=== PATIENT | female | born 1995 | race Caucasian/White ===

== ENCOUNTER 2022-09-06 21:16 | Emergency (ER) | payer OTHER ==
[2022-09-06] MEDS ORDERED: LIDOCAINE 1% INJ 10MG/ML (30 ML VIAL-PF) SQ ONE (22:17)
[2022-09-06] MEDS ORDERED: DIPH,PERTUS(ACELL)TETVAC-LF 0.5 ML VIAL IM ONE (22:17)
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
[2022-09-06 22:51] VITALS: BP 114/81; PULSE 88; RESP 18; TEMP 98.5
== END 2022-09-06 23:00 | disposition home or self-care (01) ==
LOC: EC 21:16
DX: S91.011A Laceration without foreign body, right ankle, initial encounter (principal); Z23 Encounter for immunization; Z86.59 Personal history of other mental and behavioral disorders; W25.XXXA Contact with sharp glass, initial encounter
CPT/HCPCS: 12001; 90471; 90715; 99282

== ENCOUNTER 2023-03-12 18:03 | Inpatient (IN) | payer OTHER ==
[2023-03-12] MEDS ORDERED: HYDROmorphone 0.5 MG/0.5 ML SYRINGE IVP STA (18:26)
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
[2023-03-12] MEDS ORDERED: SODIUM CHLORIDE 0.9% 1,000 ML IV ONE (20:39)
[2023-03-12 20:51] LABS: Basophils % (A) 0 %; Eosinophils # (A) 0.1 k/uL (0-0.7); Eosinophils % (A) 0 %; HCT 37.5 % (39.0-53.0); HGB 12.6 gm/dL (13.0-17.5); Lymphocytes # (A) 1.5 k/uL (1.0-4.8); Lymphocytes % (A) 7 %; MCHC 33.6 g/dL (31.0-37.0); MCV 83.5 fL (80.0-100.0); Mean Platelet Volume 8.6; Monocytes # (A) 0.7 k/uL (0-1.0); Monocytes % (A) 3 %; Neutrophils # (A) 19.5 k/uL (1.3-7.7); Neutrophils % (A) 89 %; Platelet Count 285 k/uL (150-450); RDW 13.4 % (11.5-15.5); WBC 21.9 k/uL (3.8-10.6)
[2023-03-12 21:01] LABS: African American GFR (CKD) >90 (>60 ml/min/1.73 sqM); Anion Gap 12 mmol/L; Blood Urea Nitrogen 12 mg/dL (9-20); Carbon Dioxide 23 mmol/L (22-30); Chloride 101 mmol/L (98-107); Glucose 156 mg/dL (74-99); Non-African American GFR(CKD) >90 (>60 ml/min/1.73 sqM); Potassium 3.7 mmol/L (3.5-5.1); Sodium 136 mmol/L (137-145)
[2023-03-12] MEDS ORDERED: ONDANSETRON 4 MG/2 ML VIAL IVP ONE (22:49)
[2023-03-12] MEDS ORDERED: DEXAMETHASONE SOD PHOSPHATE 4 MG/ML 1 ML VIAL IVP ONE (22:50)
[2023-03-12] MEDS ORDERED: PROPOFOL 10 MG/ML 20 ML VIAL IV ONE (23:14)
[2023-03-12] MEDS ORDERED: LIDOCAINE 1% INJ 10MG/ML (20 ML MDV) ONE (23:14)
[2023-03-12] MEDS ORDERED: fentaNYL (PF) 50 MCG/ML 2 ML AMP ONE (23:14)
[2023-03-12] MEDS ORDERED: HYDROmorphone (PF) 1 MG/ML ONE (23:14)
[2023-03-12] MEDS ORDERED: SUCCINYLCHOLINE CHLORIDE 200 MG/10 ML VIAL IV ONE (23:14)
[2023-03-12] MEDS ORDERED: SODIUM CHLORIDE 0.9% 100 ML BAG ONE (23:14)
[2023-03-12] MEDS ORDERED: MIDAZOLAM 2 MG/2 ML VIAL ONE (23:14)
[2023-03-12] MEDS ORDERED: ceFAZolin 1,000 MG VIAL ONE (23:14)
[2023-03-12] MEDS ORDERED: IV FLUID CONTINUATION 800 ML IV ONE (23:19)
[2023-03-13] MEDS ORDERED: BACITRACIN ZINC 500 UNIT/GM OINT 28.4 GM TUBE TOPICAL ONE (00:41)
[2023-03-13] MEDS ORDERED: HYDROmorphone 0.5 MG/0.5 ML SYRINGE IVP PRN (01:02)
[2023-03-13] MEDS ORDERED: MAGNESIUM HYDROXIDE 2,400 MG/30 ML CUP PO PRN (01:02)
[2023-03-13] MEDS ORDERED: ACETAMINOPHEN TAB 325 MG TAB PO PRN (01:02)
[2023-03-13] MEDS ORDERED: diazePAM 5 MG TAB PO PRN (01:02)
[2023-03-13] MEDS ORDERED: NALOXONE 0.4 MG/ML 1 ML VIAL IV PRN (01:02)
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
[2023-03-13] MEDS: HYDROmorphone 1 MG/ML 1 ML SYRINGE IVP PRN ×2 (05:40→09:42)
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
[2023-03-13] MEDS: SENNOSIDES-DOCUSATE SODIUM 1 EACH TAB PO SCH (20:22)
[2023-03-13] MEDS: HYDROcodone/APAP 5-325MG 1 EACH TAB PO PRN (21:30)
[2023-03-14] MEDS: HYDROcodone/APAP 5-325MG 1 EACH TAB PO PRN ×3 (08:30→22:23)
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
[2023-03-14 10:53] LABS: HCT 31.3 % (37.2-46.3); HGB 10.3 g/dL (12.0-15.0); MCH 27.5 pg (27.0-32.0); MCHC 32.9 g/dL (32.0-37.0); MCV 83.7 FL (80.0-97.0); Mean Platelet Volume 11.1 FL (9.5-12.2); NRBC Per 100 WBC 0 X 10*3/uL (0.00-0.01); Platelet Count 247 X 10*3/uL (140-440); RBC 3.74 X 10*6/uL (4.10-5.20); RDW 14.4 % (11.5-14.5); WBC 13.08 X 10*3/uL (4.50-10.00)
[2023-03-14 10:54] LABS: Basophils # (A) 0.03 X 10*3/uL (0.00-0.10); Basophils % (A) 0.2 %; Eosinophils # (A) 0 X 10*3/uL (0.04-0.35); Eosinophils % (A) 0 %; Lymphocytes # (A) 2.24 X 10*3/uL (0.90-5.00); Lymphocytes % (A) 17.1 %; Monocytes # (A) 1.07 X 10*3/uL (0.20-1.00); Monocytes % (A) 8.2 %; Neutrophils % (A) 74.2 %
[2023-03-14] MEDS: SODIUM CHLORIDE 0.9% 1,000 ML IV SCH (15:52)
--- NOTE | 2023-03-14 16:07 | XR ---
EXAMINATION TYPE: XR chest 2V DATE OF EXAM: 03/14/2023 3:44 PM CLINICAL INDICATION:Female, 27 years old with history of fever dyspnea; [facility] COMPARISON: None TECHNIQUE: XR chest 2V Frontal and lateral views of the chest. FINDINGS: Lungs/Pleura: There is no evidence of pleural effusion, focal consolidation, or pneumothorax. Pulmonary vascularity: Unremarkable. Heart/mediastinum: Cardiomediastinal silhouette is unremarkable. Musculoskeletal: No acute osseous pathology. IMPRESSION: Low lung volumes with a generalized hazy appearance which could represent atelectasis versus atypical pneumonia.
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
[2023-03-14] MEDS: SENNOSIDES-DOCUSATE SODIUM 1 EACH TAB PO SCH (22:23)
[2023-03-15] MEDS: SODIUM CHLORIDE 0.9% 1,000 ML IV SCH (06:28)
[2023-03-15] MEDS: HYDROcodone/APAP 5-325MG 1 EACH TAB PO PRN ×2 (08:29→14:11)
[2023-03-15 08:50] VITALS: BP 108/61; PULSE 116; RESP 19; TEMP 99.3
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
[2023-03-15] MEDS ORDERED: CEFDINIR 300 MG CAP PO SCH (10:15)
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
== END 2023-03-15 14:47 | disposition home or self-care (01) | DRG 317 ==
LOC: EDSEX → EC 18:03 → SUPCPDRO 18:03 → 4SSUR 20:40 → EDSEX 20:40 → 5NMEDONC 03-13 01:17
PROVIDERS: ADMIT Orthopaedic Surgery Orthopaedic Surgery of the Spine; ATTEND Orthopaedic Surgery Orthopaedic Surgery of the Spine
PROC: 0JQB0ZZ Repair Perineum Subcutaneous Tissue and Fascia, Open Approach (ICD-10-PCS; 2023-03-12)
PROC: 0JQL0ZZ Repair Right Upper Leg Subcutaneous Tissue and Fascia, Open Approach (ICD-10-PCS; 2023-03-12)
PROC: 0JBB0ZZ Excision of Perineum Subcutaneous Tissue and Fascia, Open Approach (ICD-10-PCS; principal; 2023-03-12 20:25)
DX: S76.121A Laceration of right quadriceps muscle, fascia and tendon, initial encounter (principal); S71.111A Laceration without foreign body, right thigh, initial encounter; S31.113A Laceration without foreign body of abdominal wall, right lower quadrant without penetration into peritoneal cavity, initial encounter; S86.821A Laceration of other muscle(s) and tendon(s) at lower leg level, right leg, initial encounter; V89.2XXA Person injured in unspecified motor-vehicle accident, traffic, initial encounter; R50.9 Fever, unspecified; R00.0 Tachycardia, unspecified; E66.01 Morbid (severe) obesity due to excess calories; F64.0 Transsexualism; F32.A Depression, unspecified; F41.9 Anxiety disorder, unspecified; Z68.42 Body mass index [BMI] 45.0-49.9, adult; Z11.52 Encounter for screening for COVID-19; K40.90 Unilateral inguinal hernia, without obstruction or gangrene, not specified as recurrent; M19.90 Unspecified osteoarthritis, unspecified site; V86.55XA Driver of 3- or 4- wheeled all-terrain vehicle (ATV) injured in nontraffic accident, initial encounter
CPT/HCPCS: 36415; 71046; 72170; 72193; 80048; 83036; 84703; 85025; 85730; 86850; 86900; 86901; 87040; 87636; 96361; 96365; 96375; 99285

== ENCOUNTER 2023-03-24 14:37 | Inpatient (IN) | payer OTHER ==
[2023-03-24] MEDS ORDERED: NALOXONE 0.4 MG/ML 1 ML VIAL IV PRN (16:42)
[2023-03-24 17:17] LABS: ALT 68 U/L (4-49); AST 62 U/L (17-59); African American GFR (CKD) >90 (>60 ml/min/1.73 sqM); Albumin 3.1 g/dL (3.5-5.0); Alkaline Phosphatase 95 U/L (38-126); Anion Gap 11 mmol/L; Blood Urea Nitrogen 6 mg/dL (9-20); Calcium 8.1 mg/dL (8.4-10.2); Carbon Dioxide 23 mmol/L (22-30); Chloride 97 mmol/L (98-107); Glucose 106 mg/dL (74-99); Non-African American GFR(CKD) >90 (>60 ml/min/1.73 sqM); Potassium 3.6 mmol/L (3.5-5.1); Sodium 131 mmol/L (137-145); Total Bilirubin 1.1 mg/dL (0.2-1.3); Total Protein 6.2 g/dL (6.3-8.2)
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
[2023-03-24] MEDS ORDERED: SODIUM CHLORIDE 0.9% 1,000 ML IV ONE (17:41)
[2023-03-24] MEDS: SODIUM CHLORIDE 0.9% 1,000 ML IV SCH (18:07)
[2023-03-24 18:27] LABS: HCT 28.4 % (39.0-53.0); Hypochromasia Slight; MCH 28.4 pg (25.0-35.0); MCHC 34.2 g/dL (31.0-37.0); Mean Platelet Volume 9.1; Platelet Count 421 k/uL (150-450); RBC 3.42 m/uL (4.30-5.90); RDW 13.7 % (11.5-15.5); WBC 12.7 k/uL (3.8-10.6)
[2023-03-24 18:28] LABS: HGB 9.7 gm/dL (13.0-17.5)
[2023-03-24] MEDS ORDERED: ceFAZolin 3 GM in SODIUM CHLORIDE 0.9% 100 ML IVPB ONE (18:30)
[2023-03-24 19:24] LABS: Appearance,Urine Cloudy (Clear); Bacteria,Urine Few /hpf; Bilirubin,Urine Negative (Negative); Blood,Urine Trace (Negative); Color,Urine Yellow; Glucose,Urine (UA) Negative (Negative); Ketones,Urine 1+ (Negative); Leukocyte Esterase,Urine Large (Negative); Mucus,Urine Many /hpf; Nitrite,Urine Negative (Negative); Protein,Urine 1+ (Negative); RBC,Urine 4 /hpf (0-5); Specific Gravity,Urine 1.023 (1.001-1.035); Squamous Epithelial Cell,Urine 7 /hpf (0-4); WBC,Urine 12 /hpf (0-5)
[2023-03-24] MEDS: SENNOSIDES-DOCUSATE SODIUM 1 EACH TAB PO SCH (22:34)
[2023-03-25] MEDS: SODIUM CHLORIDE 0.9% 1,000 ML IV SCH ×5 (03:11→18:25)
[2023-03-25] MEDS: HYDROcodone/APAP 5-325MG 1 EACH TAB PO PRN ×3 (05:01→23:55)
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
[2023-03-25] MEDS ORDERED: DEXAMETHASONE SOD PHOSPHATE 4 MG/ML 1 ML VIAL IV ONE (11:57)
[2023-03-25] MEDS ORDERED: ONDANSETRON 4 MG/2 ML VIAL IVP ONE (11:57)
[2023-03-25] MEDS ORDERED: IV FLUID CONTINUATION 1,000 ML IV ONE (15:15)
[2023-03-25] MEDS ORDERED: HYDROmorphone (PF) 1 MG/ML ONE (15:59)
[2023-03-25] MEDS ORDERED: SUCCINYLCHOLINE CHLORIDE 200 MG/10 ML VIAL IV ONE (15:59)
[2023-03-25] MEDS ORDERED: PROPOFOL 10 MG/ML 20 ML VIAL IV ONE (15:59)
[2023-03-25] MEDS ORDERED: LIDOCAINE 1% INJ 10MG/ML (20 ML MDV) ONE (15:59)
[2023-03-25] MEDS ORDERED: fentaNYL (PF) 50 MCG/ML 2 ML AMP ONE (15:59)
[2023-03-25] MEDS ORDERED: MIDAZOLAM 2 MG/2 ML VIAL ONE (15:59)
[2023-03-25] MEDS ORDERED: ceFAZolin 3,000 MG in SODIUM CHLORIDE 0.9% IRRIGATIO 3,000 ML IRRIGATION ONE (16:20)
[2023-03-25] MEDS ORDERED: traMADol 50 MG TAB PO PRN (17:14)
[2023-03-25] MEDS ORDERED: MAGNESIUM HYDROXIDE 2,400 MG/30 ML CUP PO PRN (17:14)
[2023-03-25] MEDS ORDERED: ACETAMINOPHEN TAB 325 MG TAB PO PRN (17:14)
[2023-03-25] MEDS ORDERED: HYDROmorphone 0.5 MG/0.5 ML SYRINGE IVP PRN (17:14)
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
[2023-03-25] MEDS: LACTATED RINGERS 1,000 ML IV SCH (17:59)
[2023-03-25] MEDS: MILI PO SCH (18:30)
[2023-03-25 19:38] LABS: Basophils % (A) 0 %; Eosinophils % (A) 0 %; HCT 23.8 % (39.0-53.0); Hypochromasia Moderate; Lymphocytes # (A) 0.6 k/uL (1.0-4.8); Lymphocytes % (A) 6 %; MCH 27.5 pg (25.0-35.0); MCHC 32.7 g/dL (31.0-37.0); Monocytes # (A) 0.2 k/uL (0-1.0); Monocytes % (A) 2 %; Neutrophils # (A) 9.6 k/uL (1.3-7.7); Neutrophils % (A) 91 %; Platelet Count 242 k/uL (150-450); RBC 2.84 m/uL (4.30-5.90); RDW 13.9 % (11.5-15.5); WBC 10.6 k/uL (3.8-10.6)
[2023-03-25] MEDS: SENNOSIDES-DOCUSATE SODIUM 1 EACH TAB PO SCH (19:45)
[2023-03-25 19:48] LABS: HGB 7.8 gm/dL (13.0-17.5)
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
[2023-03-26] MEDS ORDERED: ceFAZolin 3 GM in SODIUM CHLORIDE 0.9% 100 ML IVPB SCH ×2
[2023-03-26] MEDS: SODIUM CHLORIDE 0.9% 1,000 ML IV SCH ×3 (00:10→16:54)
[2023-03-26] MEDS ORDERED: HYDROmorphone 0.5 MG/0.5 ML SYRINGE IVP PRN (07:00)
[2023-03-26] MEDS: FAMOTIDINE 20 MG TAB PO SCH (09:26)
[2023-03-26] MEDS: SENNOSIDES-DOCUSATE SODIUM 1 EACH TAB PO SCH ×2 (09:27→20:21)
[2023-03-26] MEDS: MILI PO SCH (09:33)
[2023-03-26] MEDS: LACTATED RINGERS 1,000 ML IV SCH (11:07)
[2023-03-26] MEDS: HYDROcodone/APAP 5-325MG 1 EACH TAB PO PRN ×2 (11:43→20:20)
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
[2023-03-26 12:00] LABS: African American GFR (CKD) >90 (>60 ml/min/1.73 sqM); Anion Gap 9 mmol/L; Blood Urea Nitrogen 10 mg/dL (9-20); Calcium 8.1 mg/dL (8.4-10.2); Carbon Dioxide 20 mmol/L (22-30); Chloride 108 mmol/L (98-107); Glucose 142 mg/dL (74-99); Non-African American GFR(CKD) >90 (>60 ml/min/1.73 sqM); Potassium 4.6 mmol/L (3.5-5.1); Sodium 137 mmol/L (137-145)
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
[2023-03-27] MEDS: HYDROcodone/APAP 5-325MG 1 EACH TAB PO PRN ×3 (06:46→21:45)
[2023-03-27] MEDS: SENNOSIDES-DOCUSATE SODIUM 1 EACH TAB PO SCH ×2 (08:33→20:38)
[2023-03-27] MEDS: SODIUM CHLORIDE 0.9% 1,000 ML IV SCH (08:34)
[2023-03-27] MEDS: MILI PO SCH (08:34)
[2023-03-27] MEDS: FAMOTIDINE 20 MG TAB PO SCH (08:34)
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
[2023-03-27 11:43] LABS: BUN/Creat Ratio 15.33 Ratio (12.00-20.00); Blood Urea Nitrogen 9.2 mg/dL (9.0-27.0); Calcium 7.8 mg/dL (8.7-10.3); Carbon Dioxide 22.1 mmol/L (21.6-31.8); Chloride 105 mmol/L (96-109); Glucose 100 mg/dL (70-110); Potassium 4.6 mmol/L (3.5-5.5); Sodium 138 mmol/L (135-145)
[2023-03-27] MEDS: AMPICILLIN-SULBACTAM 3 GM in SODIUM CHLORIDE 0.9% 100 ML IVPB SCH ×3 (14:31→23:05)
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
[2023-03-27 17:34] LABS: Basophils % (A) 0 %; Eosinophils # (A) 0.1 k/uL (0-0.7); Eosinophils % (A) 1 %; HCT 26.8 % (39.0-53.0); HGB 8.8 gm/dL (13.0-17.5); Hypochromasia Moderate; Lymphocytes # (A) 1.3 k/uL (1.0-4.8); Lymphocytes % (A) 14 %; MCH 27.5 pg (25.0-35.0); MCHC 32.7 g/dL (31.0-37.0); MCV 84.2 fL (80.0-100.0); Mean Platelet Volume 8.3; Monocytes # (A) 0.4 k/uL (0-1.0); Monocytes % (A) 4 %; Neutrophils # (A) 7.9 k/uL (1.3-7.7); Neutrophils % (A) 81 %; Platelet Count 415 k/uL (150-450); RBC 3.18 m/uL (4.30-5.90); RDW 14.3 % (11.5-15.5); WBC 9.7 k/uL (3.8-10.6)
[2023-03-28] MEDS: AMPICILLIN-SULBACTAM 3 GM in SODIUM CHLORIDE 0.9% 100 ML IVPB SCH ×2 (05:51→12:47)
[2023-03-28 07:36] VITALS: BP 132/77; PULSE 109; RESP 16; TEMP 101.6
[2023-03-28] MEDS: MILI PO SCH (08:06)
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
[2023-03-28] MEDS: FAMOTIDINE 20 MG TAB PO SCH (08:23)
[2023-03-28] MEDS: SENNOSIDES-DOCUSATE SODIUM 1 EACH TAB PO SCH (08:23)
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
[2023-03-28] MEDS: HYDROcodone/APAP 5-325MG 1 EACH TAB PO PRN (12:46)
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
== END 2023-03-28 16:03 | disposition home or self-care (01) | DRG 721 ==
LOC: EDSEX → EC 14:37 → 1SOBS 16:42 → 4SSUR 03-26 16:15
PROVIDERS: ADMIT Orthopaedic Surgery Orthopaedic Surgery of the Spine; ATTEND Orthopaedic Surgery Orthopaedic Surgery of the Spine
PROC: 0JBL0ZZ Excision of Right Upper Leg Subcutaneous Tissue and Fascia, Open Approach (ICD-10-PCS; principal; 2023-03-25 07:30)
DX: T81.41XA Infection following a procedure, superficial incisional surgical site, initial encounter (principal); T81.32XA Disruption of internal operation (surgical) wound, not elsewhere classified, initial encounter; E66.01 Morbid (severe) obesity due to excess calories; Z68.43 Body mass index [BMI] 50.0-59.9, adult; L03.115 Cellulitis of right lower limb; F32.A Depression, unspecified; V86.95XA Unspecified occupant of 3- or 4- wheeled all-terrain vehicle (ATV) injured in nontraffic accident, initial encounter; F41.9 Anxiety disorder, unspecified; F84.0 Autistic disorder; S31.113D Laceration without foreign body of abdominal wall, right lower quadrant without penetration into peritoneal cavity, subsequent encounter; L76.34 Postprocedural seroma of skin and subcutaneous tissue following other procedure
CPT/HCPCS: 36415; 80048; 80053; 81001; 81025; 83605; 85025; 85027; 87040; 87070; 87075; 87077; 87086; 87186; 87205; 96361; 96365; 99285

== ENCOUNTER 2023-03-31 14:34 | Inpatient (IN) | payer OTHER ==
[2023-03-31] MEDS ORDERED: IBUPROFEN 600 MG TAB PO STA (15:08)
[2023-03-31] MEDS ORDERED: VANCOMYCIN IV PER PHARMACY 1 EACH MISC MISCELLANE PRN (15:08)
[2023-03-31] MEDS ORDERED: PIPERACILLIN-TAZOBACTAM 3.375 GM in SODIUM CHLORIDE 0.9% 100 ML IVPB STA (15:08)
[2023-03-31] MEDS ORDERED: ACETAMINOPHEN TAB 500 MG TAB PO STA (15:08)
--- NOTE | 2023-03-31 15:15 | ED ---
General Adult HPI - General Chief complaint: Recheck/Abnormal Lab/Rx Stated complaint: Abn Labs Time Seen by Provider: 03/31/23 15:00 Source: patient, RN notes reviewed, old records reviewed Mode of arrival: wheelchair Limitations: no limitations - History of Present Illness Initial comments: This is a 27-year-old biological female who comes into the emergency department with a wound on the upper left thigh that she has been previously taken to the OR for when it initially occurred and since then put on antibiotics because culture came back positive. Patient was seen in the wound clinic today by Dr. Toscano and he wanted the patient admitted for antibiotics and a debridement tomorrow. Patient states occasionally feels warm but has never taken her temperature. Patient states the wound does smell terrible and there is still some pain in that area. Patient states she is compliant with her antibiotics - Related Data Home Medications Medication Instructions Recorded Confirmed norgestimate-ethinyl estradioL 1 tab PO DAILY 03/12/23 03/24/23 [Isa 0.25-0.035 mg Tablet] HYDROcodone/APAP 5-325MG [[place] 5] 1 tab PO Q6HR PRN 03/24/23 03/24/23 Previous Rx's Medication Instructions Recorded Famotidine [Pepcid] 20 mg PO DAILY #15 tablet 03/15/23 Amoxic-Pot Clav 875-125Mg 1 tab PO Q12HR 14 Days #28 tab 03/28/23 [Augmentin 875-125] Allergies Allergy/AdvReac Type Severity Reaction Status Date / Time No Known Allergies Allergy Verified 03/31/23 14:56 Review of Systems ROS Statement: Those systems with pertinent positive or pertinent negative responses have been documented in the HPI. ROS Other: All systems not noted in ROS Statement are negative. Past Medical History Past Medical History: No Reported History Additional Past Medical History / Comment(s): Patient identifies as male. Uses the pronoun of he. Originally born and a assigned female with a name of Benita Phillip. Denies any medications other than oral contraceptives. History of Any Multi-Drug Resistant Organisms: None Reported Past Surgical History: Orthopedic Surgery Additional Past Surgical History / Comment(s): Right thigh I&D and laceration repair. Past Anesthesia/Blood Transfusion Reactions: No Reported Reaction Past Psychological History: Anxiety, Depression Smoking Status: Never smoker Past Alcohol Use History: Rare Past Drug Use History: None Reported General Exam - General Exam Comments Initial Comments: GENERAL: Patient is well-developed and well-nourished. Patient is nontoxic and well- hydrated and is in mild distress. ENT: Neck is soft and supple. No significant lymphadenopathy is noted. Oropharynx is clear. Moist mucous membranes. Neck has full range of motion without eliciting any pain. EYES: The sclera were anicteric and conjunctiva were pink and moist. Extraocular movements were intact and pupils were equal round and reactive to light. Eyelids were unremarkable. PULMONARY: Unlabored respirations. Good breath sounds bilaterally. No audible rales rhonchi or wheezing was noted. CARDIOVASCULAR: There is a regular rate and rhythm without any murmurs gallops or rubs. ABDOMEN: Soft and nontender with normal bowel sounds. SKIN: Skin is clear with no lesions or rashes and otherwise unremarkable. NEUROLOGIC: Patient is alert and oriented x3. Cranial nerves II through XII are grossly intact. Motor and sensory are also intact. Normal speech, volume and content. Symmetrical smile. MUSCULOSKELETAL: Patient's right groin wound has a lot of necrotic tissue around it and hasn't very malodorous smell. LYMPHATICS: No significant lymphadenopathy is noted PSYCHIATRIC: Normal psychiatric evaluation. Limitations: no limitations Course Vital Signs 03/31/23 14:56 Temperature 98.8 F Pulse Rate 112 Respiratory 18 Rate Blood Pressure 110/60 O2 Sat by Pulse 100 Oximetry Medical Decision Making - Medical Decision Making Was pt. sent in by a medical professional or institution (, PA, SHIP DESIGN TEACHER, urgent care, hospital, or jail...) When possible be specific @ -Dr. Toscano sent the patient in Did you speak to anyone other than the patient for history (EMS, parent, family, police, friend...)? What history was obtained from this source @ -[No] Did you review nursing and triage notes (agree or disagree)? Why? @ -[I reviewed and agree with nursing and triage notes] Were old charts reviewed (outside hosp., previous admission, EMS record, old EKG, old radiological studies, urgent care reports/EKG's, jail records)? Report findings @ -I reviewed prior charts prior lab work prior microbiology reports Differential Diagnosis (chest pain, altered mental status, abdominal pain women, abdominal pain men, vaginal bleeding, weakness, fever, dyspnea, syncope, headache, dizziness, GI bleed, back pain, seizure, CVA, palpatations, mental health, musculoskeletal)? @ -Cellulitis, gangrene, wound debridement, this is not all inclusive EKG interpreted by me (3pts min.). @ -[As above] X-rays interpreted by me (1pt min.). @ -[None done] CT interpreted by me (1pt min.). @ -[None done] U/S interpreted by me (1pt. min.). @ -[None done] What testing was considered but not performed or refused? (CT, X-rays, U/S, labs)? Why? @ -[None] What meds were considered but not given or refused? Why? @ -[None] Did you discuss the management of the patient with other professionals (professionals i.e. , PA, SHIP DESIGN TEACHER, lab, RT, psych nurse, social service manager, construction sales manager, teacher, protection officer, medical case manager)? Give summary @ -I spoke with Dr. Lucero he agreed to admit the patient. I also spoke with Dr. Toscano he agreed to consult. Was smoking cessation discussed for >3mins.? @ -[No] Was critical care preformed (if so, how long)? @ -[No] Were there social determinants of health that impacted care today? How? (Homelessness, low income, unemployed, alcoholism, drug addiction, transportation, low edu. Level, literacy, decrease access to med. care, [place] [facility], rehab)? @ -[No] Was there de-escalation of care discussed even if they declined (Discuss DNR or withdrawal of care, Hospice)? DNR status @ -[No] What co-morbidities impacted this encounter? (DM, HTN, Smoking, COPD, CAD, Cancer, CVA, ARF, Chemo, Hep., AIDS, mental health diagnosis, sleep apnea, morbid obesity)? @ -[None] Was patient admitted / discharged? Hospital course, mention meds given and route, prescriptions, significant lab abnormalities, going to OR and other pertinent info. @ -I wrote admitting orders I consulted Dr. Cao for infectious disease and consult with Dr. Toscano for debridement Undiagnosed new problem with uncertain prognosis? @ -[No] Drug Therapy requiring intensive monitoring for toxicity (Heparin, Nitro, Insulin, Cardizem)? @ -[No] Were any procedures done? @ -[No] Diagnosis/symptom? @ -Surgical wound infection Acute, or Chronic, or Acute on Chronic? @ -Acute Uncomplicated (without systemic symptoms) or Complicated (systemic symptoms)? @ -Complicated Side effects of treatment? @ -[No] Exacerbation, Progression, or Severe Exacerbation? @ -[No] Poses a threat to life or bodily function? How? (Chest pain, [place], VA, pneumonia, PE, COPD, DKA, ARF, appy, cholecystitis, CVA, Diverticulitis, Homicidal, Suicidal, threat to staff... and all critical care pts) @ -Yes this could lead to sepsis and end organ dysfunction Disposition Clinical Impression: Surgical wound infection Disposition: ADMITTED IP TO THIS HOSP Referrals: Hung Daigle DO [Primary Care Provider] - 1-2 days Time of Disposition: 15:15
[2023-03-31] MEDS ORDERED: SODIUM CHLORIDE 0.9% 1,000 ML IV ONE (15:16)
[2023-03-31] MEDS ORDERED: VANCOMYCIN 2,500 MG in SODIUM CHLORIDE 0.9% 500 ML 500 ML IVPB ONE (16:00)
[2023-03-31] MEDS: SODIUM CHLORIDE 0.9% 500 ML 500 ML IV SCH (17:18)
[2023-03-31 17:46] LABS: Basophils % (A) 0 %; Eosinophils # (A) 0.1 k/uL (0-0.7); Eosinophils % (A) 1 %; HCT 27.8 % (39.0-53.0); HGB 9.3 gm/dL (13.0-17.5); Hypochromasia Moderate; Lymphocytes # (A) 2.1 k/uL (1.0-4.8); Lymphocytes % (A) 17 %; MCH 27.3 pg (25.0-35.0); MCHC 33.4 g/dL (31.0-37.0); MCV 81.8 fL (80.0-100.0); Mean Platelet Volume 8.5; Monocytes # (A) 0.6 k/uL (0-1.0); Monocytes % (A) 5 %; Neutrophils # (A) 9.5 k/uL (1.3-7.7); Neutrophils % (A) 76 %; Platelet Count 471 k/uL (150-450); Poikilocytosis Slight; RDW 14.4 % (11.5-15.5); WBC 12.6 k/uL (3.8-10.6)
[2023-03-31 18:06] LABS: Prothrombin Time 10.6 sec (10.0-12.5)
[2023-03-31 18:09] LABS: ALT 68 U/L (4-49); AST 56 U/L (17-59); African American GFR (CKD) >90 (>60 ml/min/1.73 sqM); Albumin 2.8 g/dL (3.5-5.0); Alkaline Phosphatase 89 U/L (38-126); Anion Gap 6 mmol/L; Blood Urea Nitrogen 7 mg/dL (9-20); Carbon Dioxide 22 mmol/L (22-30); Chloride 104 mmol/L (98-107); Glucose 109 mg/dL (74-99); Non-African American GFR(CKD) >90 (>60 ml/min/1.73 sqM); Sodium 132 mmol/L (137-145); Total Bilirubin 0.8 mg/dL (0.2-1.3); Total Protein 5.6 g/dL (6.3-8.2)
[2023-03-31 18:40] LABS: Partial Thromboplastin Time 20.9 sec (22.0-30.0)
[2023-03-31] MEDS ORDERED: LACTULOSE 20 GM/30 ML CUP PO PRN (20:25)
[2023-03-31] MEDS ORDERED: ONDANSETRON 4 MG/2 ML VIAL IVP PRN (20:25)
[2023-03-31] MEDS ORDERED: ALPRAZolam 0.25 MG TAB PO PRN (20:25)
[2023-03-31] MEDS ORDERED: NALOXONE 0.4 MG/ML 1 ML VIAL IV PRN (20:25)
[2023-03-31] MEDS ORDERED: MELATONIN 3 MG TABLET PO PRN (20:25)
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
[2023-03-31] MEDS: ENOXAPARIN 40 MG/0.4 ML SYRINGE SQ SCH (20:58)
[2023-03-31] MEDS: AMPICILLIN-SULBACTAM 3 GM in SODIUM CHLORIDE 0.9% 100 ML IVPB SCH (23:00)
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
[2023-04-01] MEDS ORDERED: PIPERACILLIN-TAZOBACTAM 3.375 GM in SODIUM CHLORIDE 0.9% 100 ML IVPB SCH ×2
[2023-04-01] MEDS: HYDROcodone/APAP 5-325MG 1 EACH TAB PO PRN ×3 (00:05→21:32)
[2023-04-01] MEDS ORDERED: VANCOMYCIN 2,500 MG in SODIUM CHLORIDE 0.9% 500 ML 500 ML IVPB SCH (02:00)
[2023-04-01] MEDS: AMPICILLIN-SULBACTAM 3 GM in SODIUM CHLORIDE 0.9% 100 ML IVPB SCH ×4 (05:32→23:46)
[2023-04-01 07:08] LABS: African American GFR (CKD) >90 (>60 ml/min/1.73 sqM); Non-African American GFR(CKD) >90 (>60 ml/min/1.73 sqM)
[2023-04-01] MEDS: ENOXAPARIN 40 MG/0.4 ML SYRINGE SQ SCH (09:18)
[2023-04-01] MEDS: FAMOTIDINE 20 MG TAB PO SCH (09:21)
[2023-04-01] MEDS: norgestimate-ethinyl estradioL 1 EACH TABLET PO SCH (10:04)
[2023-04-01] MEDS ORDERED: IV FLUID CONTINUATION 900 ML IV ONE (13:45)
[2023-04-01] MEDS ORDERED: fentaNYL (PF) 50 MCG/ML 2 ML AMP ONE (14:10)
[2023-04-01] MEDS ORDERED: PROPOFOL 10 MG/ML 20 ML VIAL IV ONE (14:10)
[2023-04-01] MEDS ORDERED: MIDAZOLAM 2 MG/2 ML VIAL ONE (14:10)
[2023-04-01] MEDS ORDERED: LIDOCAINE 1% INJ 10MG/ML (20 ML MDV) SQ ONE ×2 (14:42)
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
[2023-04-02] MEDS: AMPICILLIN-SULBACTAM 3 GM in SODIUM CHLORIDE 0.9% 100 ML IVPB SCH ×4 (06:00→17:18)
[2023-04-02] MEDS: HYDROcodone/APAP 5-325MG 1 EACH TAB PO PRN ×3 (06:05→22:24)
[2023-04-02 06:54] LABS: Basophils % (A) 0 %; Eosinophils # (A) 0.1 k/uL (0-0.7); Eosinophils % (A) 1 %; HCT 25.1 % (34.0-46.0); HGB 7.9 gm/dL (11.4-16.0); Hypochromasia Marked; Lymphocytes # (A) 2.3 k/uL (1.0-4.8); Lymphocytes % (A) 20 %; MCH 26.4 pg (25.0-35.0); MCHC 31.7 g/dL (31.0-37.0); MCV 83.4 fL (80.0-100.0); Mean Platelet Volume 8.2; Monocytes # (A) 0.6 k/uL (0-1.0); Monocytes % (A) 5 %; Neutrophils # (A) 8.2 k/uL (1.3-7.7); Neutrophils % (A) 72 %; Platelet Count 417 k/uL (150-450); Poikilocytosis Slight; RBC 3.01 m/uL (3.80-5.40); RDW 14.8 % (11.5-15.5); WBC 11.3 k/uL (3.8-10.6)
[2023-04-02 07:12] LABS: ALT 55 U/L (4-34); AST 44 U/L (14-36); African American GFR (CKD) >90 (>60 ml/min/1.73 sqM); Albumin 2.4 g/dL (3.5-5.0); Albumin/Globulin Ratio 0.9; Alkaline Phosphatase 75 U/L (38-126); Anion Gap 6 mmol/L; Blood Urea Nitrogen 7 mg/dL (7-17); Calcium 7.5 mg/dL (8.4-10.2); Carbon Dioxide 20 mmol/L (22-30); Chloride 108 mmol/L (98-107); Globulin 2.7 g/dL; Glucose 99 mg/dL (74-99); Non-African American GFR(CKD) >90 (>60 ml/min/1.73 sqM); Potassium 3.6 mmol/L (3.5-5.1); Sodium 134 mmol/L (137-145); Total Bilirubin 0.6 mg/dL (0.2-1.3); Total Protein 5.1 g/dL (6.3-8.2)
[2023-04-02] MEDS: ENOXAPARIN 40 MG/0.4 ML SYRINGE SQ SCH (08:08)
[2023-04-02] MEDS: FAMOTIDINE 20 MG TAB PO SCH (08:08)
[2023-04-02] MEDS: norgestimate-ethinyl estradioL 1 EACH TABLET PO SCH (08:08)
--- NOTE | 2023-04-02 09:19 | PN ---
PROGRESS NOTE The patient is a 27-year-old female. The patient had a wound on her left groin area with flap necrosis. Yesterday, we did extensive debridement. There was fat necrosis and fasciitis on her anterior aspect of the thigh. We excised it and we placed a VAC treatment. The patient is on IV antibiotics. The VAC should be changed every 3 days a week, and we did take the deep culture again, and we waited for the report. We continued the local wound care. The wound VAC will be changed tomorrow. MMODL / IJN: [id number] /
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
[2023-04-03] MEDS: AMPICILLIN-SULBACTAM 3 GM in SODIUM CHLORIDE 0.9% 100 ML IVPB SCH ×4 (00:35→17:29)
[2023-04-03] MEDS: HYDROcodone/APAP 5-325MG 1 EACH TAB PO PRN ×3 (06:58→18:57)
[2023-04-03] MEDS: FAMOTIDINE 20 MG TAB PO SCH (09:03)
[2023-04-03] MEDS: ENOXAPARIN 40 MG/0.4 ML SYRINGE SQ SCH (09:04)
[2023-04-03] MEDS: norgestimate-ethinyl estradioL 1 EACH TABLET PO SCH (09:04)
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
--- NOTE | 2023-04-03 16:58 | P.PN ---
Progress Note - Text 27-year-old white female patient has a large wound in the right groin area patient had extensive debridement patient IV antibiotic culture is pending today we have changed wound VAC there is some granulation tissue noted still there is a lot of drainage the wound VAC continue with IV antibiotic
[2023-04-04] MEDS: AMPICILLIN-SULBACTAM 3 GM in SODIUM CHLORIDE 0.9% 100 ML IVPB SCH ×5 (00:38→23:40)
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
[2023-04-04] MEDS: HYDROcodone/APAP 5-325MG 1 EACH TAB PO PRN ×3 (03:18→18:05)
[2023-04-04 06:27] LABS: Basophils % (A) 0 %; Eosinophils # (A) 0.1 k/uL (0-0.7); Eosinophils % (A) 1 %; HCT 25.2 % (34.0-46.0); Hypochromasia Marked; Lymphocytes # (A) 2.2 k/uL (1.0-4.8); Lymphocytes % (A) 20 %; MCH 26.7 pg (25.0-35.0); MCHC 31.8 g/dL (31.0-37.0); Mean Platelet Volume 8.2; Monocytes # (A) 0.4 k/uL (0-1.0); Monocytes % (A) 4 %; Neutrophils # (A) 8.1 k/uL (1.3-7.7); Neutrophils % (A) 74 %; Platelet Count 401 k/uL (150-450); RDW 14.8 % (11.5-15.5)
[2023-04-04 06:39] LABS: African American GFR (CKD) >90 (>60 ml/min/1.73 sqM); Anion Gap 4 mmol/L; Blood Urea Nitrogen 6 mg/dL (7-17); Calcium 7.8 mg/dL (8.4-10.2); Carbon Dioxide 24 mmol/L (22-30); Chloride 108 mmol/L (98-107); Glucose 106 mg/dL (74-99); Non-African American GFR(CKD) >90 (>60 ml/min/1.73 sqM); Potassium 3.8 mmol/L (3.5-5.1); Sodium 136 mmol/L (137-145)
[2023-04-04 09:28] LABS: % Iron Saturation 11.36 (12.00-45.00)
[2023-04-04] MEDS: ENOXAPARIN 40 MG/0.4 ML SYRINGE SQ SCH (09:47)
[2023-04-04] MEDS: FAMOTIDINE 20 MG TAB PO SCH (09:47)
[2023-04-04] MEDS: norgestimate-ethinyl estradioL 1 EACH TABLET PO SCH (09:48)
[2023-04-04 13:08] VITALS: BMI 51.5
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
[2023-04-04] MEDS: SODIUM FERRIC GLUCONAT-SUCROSE 125 MG in SODIUM CHLORIDE 0.9% 100 ML IVPB SCH (16:01)
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
[2023-04-05] MEDS: AMPICILLIN-SULBACTAM 3 GM in SODIUM CHLORIDE 0.9% 100 ML IVPB SCH ×4 (06:12→22:59)
[2023-04-05] MEDS: HYDROcodone/APAP 5-325MG 1 EACH TAB PO PRN ×3 (08:09→22:59)
[2023-04-05] MEDS: ENOXAPARIN 40 MG/0.4 ML SYRINGE SQ SCH (08:09)
[2023-04-05] MEDS: FAMOTIDINE 20 MG TAB PO SCH (08:09)
[2023-04-05] MEDS: norgestimate-ethinyl estradioL 1 EACH TABLET PO SCH (08:11)
[2023-04-05] MEDS: SODIUM FERRIC GLUCONAT-SUCROSE 125 MG in SODIUM CHLORIDE 0.9% 100 ML IVPB SCH (09:41)
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
[2023-04-05] MEDS: CALCIUM CARBONATE 500 MG CHEWABLE PO PRN ×2 (13:44→17:10)
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
[2023-04-06] MEDS: HYDROcodone/APAP 5-325MG 1 EACH TAB PO PRN ×3 (05:24→22:53)
[2023-04-06] MEDS: AMPICILLIN-SULBACTAM 3 GM in SODIUM CHLORIDE 0.9% 100 ML IVPB SCH ×4 (05:24→22:53)
[2023-04-06] MEDS: FAMOTIDINE 20 MG TAB PO SCH (08:46)
[2023-04-06] MEDS: ENOXAPARIN 40 MG/0.4 ML SYRINGE SQ SCH (08:47)
[2023-04-06] MEDS: SODIUM FERRIC GLUCONAT-SUCROSE 125 MG in SODIUM CHLORIDE 0.9% 100 ML IVPB SCH (08:47)
[2023-04-06] MEDS: norgestimate-ethinyl estradioL 1 EACH TABLET PO SCH (08:47)
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
--- NOTE | 2023-04-06 20:00 | US ---
EXAMINATION TYPE: US venous doppler duplex UE RT DATE OF EXAM: 04/06/2023 COMPARISON: NONE CLINICAL INDICATION: Female, 27 years old with history of swelling/picc; pain right arm. PICC line ri ght cephalic vein SIDE PERFORMED: right Right Arm: *limitations due to patient's body habitus and picc line bandage. no evidence of DVT as vi sualized. picc line visualized within cephalic vein. superficial thrombus right cephalic vein IMPRESSION: 1. No right upper extremity deep venous thrombosis were visualized. Exam is limited due to body habit us and physical condition. 2. Superficial venous thrombosis within the cephalic vein. PICC line identified within the cephalic v ein
[2023-04-07] MEDS: AMPICILLIN-SULBACTAM 3 GM in SODIUM CHLORIDE 0.9% 100 ML IVPB SCH ×2 (05:17→12:40)
[2023-04-07] MEDS: HYDROcodone/APAP 5-325MG 1 EACH TAB PO PRN ×2 (05:18→12:53)
[2023-04-07] MEDS: norgestimate-ethinyl estradioL 1 EACH TABLET PO SCH (07:55)
[2023-04-07] MEDS: ENOXAPARIN 40 MG/0.4 ML SYRINGE SQ SCH (07:56)
[2023-04-07] MEDS: FAMOTIDINE 20 MG TAB PO SCH (07:57)
[2023-04-07 08:43] VITALS: RESP 18
[2023-04-07] MEDS ORDERED: LIDOCAINE 1% INJ 10MG/ML (5 ML VIAL-PF) SQ ONE (14:57)
[2023-04-07 15:17] VITALS: BP 116/73; PULSE 104; TEMP 98.1
[2023-04-07] MEDS ORDERED: PIPERACILLIN-TAZOBACTAM 3.375 GM in SODIUM CHLORIDE 0.9% 100 ML IVPB SCH (16:00)
--- NOTE | 2023-04-07 16:13 | IR ---
EXAMINATION TYPE: IR cvc insert >=5 years DATE OF EXAM: 04/07/2023 FLUOROSCOPY ABX, 0.9min fluoro, 9.91Lpxj1, 45cm, Right basililc vein. 29 images submitted.
--- NOTE | 2023-04-07 19:35 | P.PCN ---
Date of Procedure: 04/07/23 Preoperative Diagnosis: Lower leg infection need for continued IV antibiotics Postoperative Diagnosis: Same Procedure(s) Performed: Right upper extremity basilic vein PICC line placement under ultrasound and fluoroscopic guidance Anesthesia: local Surgeon: Fletcher Comer Pathology: none sent Disposition: floor Description of Procedure: After written and informed consent was obtained the patient and all risks, benefits and competitions were described the patient was brought to the [employer] and laid in a supine position with his right arm outstretched on an armboard. The area of the right arm was prepped and draped in usual sterile fashion. Timeout was performed in normal fashion. Utilizing ultrasound the basilic vein was visualized and shown to be compressible without any visible thrombus. Under ultrasound guidance the basilic vein was then cannulated with a micropuncture needle and wire was placed under direct visualization of fluoroscopy. Introducer sheath was then placed. The catheter was measured and cut to the appropriate length which was 45 cm. The catheter was then guided through the breakaway sheath and the sheath was removed with good positioning was visualized under fluoroscopy. The catheter was pulled and flushed easily. It was then secured in place in normal fashion. Patient tolerated the procedure well was sent back to his room for recovery.
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
== END 2023-04-07 17:45 | disposition home health service (06) | DRG 721 ==
LOC: OR 14:34 → 4SSUR 15:19 → EDSEX 15:19 → 4SSUR 15:56
PROVIDERS: ADMIT Hospitalist; ATTEND Hospitalist
PROC: 0JBL0ZZ Excision of Right Upper Leg Subcutaneous Tissue and Fascia, Open Approach (ICD-10-PCS; principal; 2023-04-01 10:50)
PROC: 02HV33Z Insertion of Infusion Device into Superior Vena Cava, Percutaneous Approach (ICD-10-PCS; 2023-04-07)
DX: T81.41XA Infection following a procedure, superficial incisional surgical site, initial encounter (principal); M72.6 Necrotizing fasciitis; I96 Gangrene, not elsewhere classified; S71.111A Laceration without foreign body, right thigh, initial encounter; Z68.43 Body mass index [BMI] 50.0-59.9, adult; E66.01 Morbid (severe) obesity due to excess calories; D62 Acute posthemorrhagic anemia; E87.1 Hypo-osmolality and hyponatremia; E88.09 Other disorders of plasma-protein metabolism, not elsewhere classified; S76.121A Laceration of right quadriceps muscle, fascia and tendon, initial encounter; I82.611 Acute embolism and thrombosis of superficial veins of right upper extremity; D50.9 Iron deficiency anemia, unspecified; B95.2 Enterococcus as the cause of diseases classified elsewhere; F40.10 Social phobia, unspecified; L03.115 Cellulitis of right lower limb; D75.838 Other thrombocytosis; V86.19XA Passenger of other special all-terrain or other off-road motor vehicle injured in traffic accident, initial encounter; Y92.838 Other recreation area as the place of occurrence of the external cause
CPT/HCPCS: 36410; 36573; 76937; 80048; 80053; 81025; 82565; 82607; 82728; 82746; 83540; 83550; 83605; 84703; 85025; 85610; 85730; 87040; 93005; 96365; 99285

== ENCOUNTER 2023-04-26 19:10 | Emergency (ER) | payer OTHER ==
[2023-04-26 19:41] VITALS: RESP 20; TEMP 98.7
[2023-04-26 20:34] VITALS: BP 127/87; PULSE 87
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
== END 2023-04-26 20:54 | disposition home or self-care (01) ==
LOC: EC 19:10
DX: R50.9 Fever, unspecified (principal); Z86.59 Personal history of other mental and behavioral disorders
CPT/HCPCS: 99284

== ENCOUNTER → 2023-08-19 | Outpatient (CLI) | payer OTHER ==
[2023-08-19 14:38] VITALS: BP 128/82; PULSE 87; RESP 17; TEMP 98.3
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
== END ==
LOC: WWCWWP 14:11
PROVIDERS: ATTEND Obstetrics & Gynecology
DX: Z01.419 Encounter for gynecological examination (general) (routine) without abnormal findings (principal); E66.9 Obesity, unspecified; N94.6 Dysmenorrhea, unspecified; N92.0 Excessive and frequent menstruation with regular cycle; Z68.43 Body mass index [BMI] 50.0-59.9, adult; Z80.3 Family history of malignant neoplasm of breast